=== PATIENT | male | born 2000 | race Caucasian/White ===

== ENCOUNTER 2020-02-25 21:48 | Emergency (ER) | payer BC, OTHER ==
[~2020-02-25] VITALS: Ht 188 cm; Wt 65.0 kg
--- NOTE | 2020-02-25 22:00 | NUR ---
Patient presents to ER in custody of [facility]'s Office c/o SI. [facility] placed patient on a L2K. Patient states he is in custody because he was trying to defend himself by "shooting through the door because someone said they were going to blow his brains out." Patient has a hx of depression and anxiety; no other psych hx. Patient has no hx of SI/SA. Patient states his plan is to use a gun to shoot himself which he has access to at home. Patient is in NAD. Respirations even and unlabored. Belongings locked in cabinet. Sitter outside.
[2020-02-25 22:38] LABS: AMPHETAMINE SCREEN, URINE Positive (Negative); BARBITURATE SCREEN, URINE Negative (Negative); BENZODIAZEPINE SCREEN, URINE Negative (Negative); CANNABINOID SCREEN, URINE Positive (Negative); COCAINE SCREEN, URINE Negative (Negative); METHADONE SCREEN, URINE Negative (Negative); OPIATE SCREEN, URINE Negative (Negative)
--- NOTE | 2020-02-25 22:51 | NUR ---
Mother [phone]
--- NOTE | 2020-02-25 23:00 | NUR ---
Provided crackers, peanut butter, and juice. Patient watching TV in PD[employer]. No complaints or other needs at this time. Belongings locked in cabinet; sitter outside.
[2020-02-25 23:11] LABS: BASOPHILS % (AUTO) 1 % (0-1); EOSINOPHILS % (AUTO) 3 % (1-7); LYMPHOCYTES % (AUTO) 40 % (22-44); MEAN CORPUSCULAR HEMOGLOBIN 31.3 pg (27.5-34.5); MEAN CORPUSCULAR HGB CONC 34.1 g/dL (33.2-36.2); MEAN PLATELET VOLUME 7.9 fL (7.4-10.4); MONOCYTES % (AUTO) 9 % (2-9); NEUTROPHILS % (AUTO) 47 % (42-75); PLATELET COUNT 288 x10^3/uL (130-400); RED BLOOD COUNT 4.78 x10^6/uL (4.38-5.82); RED CELL DISTRIBUTION WIDTH 13.8 % (9.4-14.8)
[2020-02-25 23:14] LABS: MD NO
[2020-02-25 23:18] LABS: ALBUMIN 4.2 g/dL (3.4-5.0); ANION GAP 5 mmol/L (5-15); CALCIUM 8.9 mg/dL (8.5-10.1); CHLORIDE 106 mmol/L (98-107); CREATININE 0.94 mg/dL (0.7-1.3)
[2020-02-25 23:20] LABS: SALICYLATE LEVEL < 1.7 mg/dL (2.8-20.0)
--- NOTE | 2020-02-26 00:34 | NUR ---
Patient sleeping in gurney. Respirations even and unlabored. Belongings locked in cabinet. Sitter outside.
--- NOTE | 2020-02-26 01:13 | NUR ---
Report to ADALIGSA Chambers. Patient care transferred.
--- NOTE | 2020-02-26 03:28 | NUR ---
MT: PSYCH PACKET SENT TO [facility] ONLY.
--- NOTE | 2020-02-26 06:00 | NUR ---
PT RESTING IN BED, PT IN SI SECURED ROOM WITH SITTER AT THE DOOR
--- NOTE | 2020-02-26 06:56 | NUR ---
REPORT TO BRANDI DIANA
--- NOTE | 2020-02-26 06:57 | NUR ---
REPORT FROM [facility]
--- NOTE | 2020-02-26 08:31 | NUR ---
PT RESTING, SITTER PRESENT
--- NOTE | 2020-02-26 09:00 | NUR ---
MEAL TRAY GIVEN
--- NOTE | 2020-02-26 10:59 | NUR ---
PT RESTING, WATCHING TV.
--- NOTE | 2020-02-26 11:00 | NUR ---
PACKET FAXED TO [facility]. [facility] CURRENTLY NOT ACCEPTING PTS.
--- NOTE | 2020-02-26 11:18 | NUR ---
PT ON HOSPITAL BED FOR COMFORT. MEAL TRAY ORDERED,
--- NOTE | 2020-02-26 11:27 | NUR ---
[facility] with [facility] called and dr velazquez accepts pt anytime
--- NOTE | 2020-02-26 11:36 | NUR ---
[facility] [place], TRANSPORT WILL BE HERE AT APPROX 1215.
[2020-02-26 11:57] VITALS: BP 118/80
--- NOTE | 2020-02-26 11:58 | NUR ---
REPORT TO [facility]
--- NOTE | 2020-02-26 12:55 | NUR ---
TRASPORT VIA [facility] TO [facility], ALL BELONGINGS W PT FOR TRANSFER.
== END 2020-02-26 12:55 ==
LOC: ED 23:21
DX: R45.851 Suicidal ideations (principal); F15.10 Other stimulant abuse, uncomplicated; F12.10 Cannabis abuse, uncomplicated
CPT/HCPCS: 36415; 80048; 80307; 82040; 85025; 99285